=== PATIENT | female | born 1960 | race Caucasian/White ===

== ENCOUNTER → 2017-05-16 | Outpatient (CLI) | payer BC, OTHER ==
[~2017-05-16] MED LIST: DICL35CA PO; DOCU100T7 PO; ESTR0.62 PO; NF-ESOM40C PO; TELM40T PO; simply sleep PO
--- NOTE | 2017-05-19 10:48 | Diagnostic Imaging Report ---
INDICATION: Screening mammogram. COMPARISON: None. COMPARISON: 05/08/2015. TECHNIQUE: Digital screening mammography was obtained with CAD and 3-dimensional tomosynthesis. FINDINGS: Scattered fibroglandular densities are again seen. There has been no interval change since the prior examination. No suspicious calcifications or masses are seen. IMPRESSION: Stable screening mammogram. No malignancy. ACR BI-RADS Category 1: Negative. Result letter will be mailed to the patient. Note: At least 10% of breast cancer is not imaged by mammography. Dictated by: Dictated on workstation # [id number]
== END ==
LOC: RAD 06:56
PROVIDERS: ATTEND Family Medicine
DX: Z12.31 Encounter for screening mammogram for malignant neoplasm of breast (principal)
CPT/HCPCS: 77067

== ENCOUNTER → 2018-06-12 | Outpatient (CLI) | payer BC, OTHER ==
--- NOTE | 2018-06-15 10:28 | Diagnostic Imaging Report ---
Indication: Routine screening. Comparison is made with prior mammogram from 05/16/2017 and 05/08/2015. 2-D and 3-D bilateral screening mammography was performed with CAD. Both breasts are heterogeneously dense, limiting the sensitivity of mammography. The overall parenchymal pattern appears to be stable. Circumscribed density in the upper and slightly outer retroareolar left breast appears stable. No new mass or malignant-appearing microcalcifications are seen. The axillae are unremarkable. Impression: BI-RADS category 2 No mammographic features suspicious for malignancy are identified. ACR BI-RADS Category 2: Benign findings. Result letter will be mailed to the patient. Note: At least 10% of breast cancer is not imaged by mammography. Dictated by: Dictated on workstation # [id number]
== END ==
LOC: RAD 13:27
PROVIDERS: ATTEND Nurse Practitioner Family
DX: Z12.31 Encounter for screening mammogram for malignant neoplasm of breast (principal)
CPT/HCPCS: 77067

== ENCOUNTER → 2019-01-26 | Outpatient (CLI) | payer BC, OTHER ==
--- NOTE | 2019-01-26 12:52 | Diagnostic Imaging Report ---
PROCEDURE: US Gallbladder. TECHNIQUE: Multiple real-time grayscale images were obtained over the right upper quadrant in various projections. INDICATION: Right upper quadrant pain and diarrhea. FINDINGS: The liver is normal in size and is without focal lesions. There is no biliary duct dilatation. Common bile duct measures less than 5 mm. There is no cholelithiasis, gallbladder wall thickening or pericholecystic fluid. Pancreas is partially obscured by bowel gas. Right kidney is normal. There is no ascites. IMPRESSION: Unremarkable right upper quadrant ultrasound. Dictated by: Dictated on workstation # [id number]
== END ==
LOC: RAD 06:48
PROVIDERS: ATTEND Surgery
DX: R10.11 Right upper quadrant pain (principal); R19.7 Diarrhea, unspecified
CPT/HCPCS: 76705

== ENCOUNTER → 2019-01-28 | Outpatient (CLI) | payer BC, OTHER ==
[~2019-01-28] MED LIST changes: +CATHETER FLUSH 10 ML SYR IV PRN
--- NOTE | 2019-01-28 18:06 | Diagnostic Imaging Report ---
EXAMINATION: Nuclear medicine hepatobiliary scan. INDICATION: Right upper quadrant pain. FINDINGS: There are no prior nuclear medicine studies available for comparison. The gallbladder ultrasound exam performed on 01/26/2009 failed to show any sign of cholelithiasis or acute cholecystitis. For this exam, 5.48 mCi of Choletec was injected. An 8-ounce can of Ensure was also administered one hour into the exam. Normally, there is uptake of the radiotracer by the gallbladder before 30 minutes. However on this exam, there was no clear evidence for uptake of the radiotracer by the gallbladder until 55 minutes. The delayed uptake of the gallbladder does suggest that there is an element of chronic cholecystitis present. There is extension of the radiotracer into the small bowel indicating that the common bile duct is not obstructed. The ejection fraction is only 13.4% (normal greater than 35%). The reason for the diminished ejection fraction is not certain. IMPRESSION: 1. There is no evidence for acute cholecystitis but the delayed uptake of the radiotracer by the gallbladder does suggest that there is an element of chronic cholecystitis present. The ejection fraction is also well below normal limits. 2. There is no evidence for obstruction of the common bile duct. Dictated by: Dictated on workstation # [id number]
== END ==
LOC: RAD 11:13
PROVIDERS: ATTEND Surgery
DX: K81.1 Chronic cholecystitis (principal)
CPT/HCPCS: 78227

== ENCOUNTER 2019-02-01 12:04 | Outpatient (CLI) | payer BC, OTHER ==
[~2019-02-01] VITALS: Ht 172.7 cm; Wt 79.4 kg
[~2019-02-01 12:04] MED LIST changes: -CATHETER FLUSH 10 ML SYR IV PRN
[2019-02-01] MEDS ORDERED: TOLTA4 PO (13:29)
[2019-02-01] MEDS ORDERED: LOSA50TA63 PO (13:29)
[2019-02-01] MEDS ORDERED: ESTR0.3T PO (13:29)
[2019-02-01] MEDS ORDERED: DEXL60CA PO (13:29)
[2019-02-02] MEDS ORDERED: omeprazole PO (09:40)
[2019-02-02] MEDS ORDERED: HYDR-3816 PO (11:28)
== END 2019-02-01 13:30 | disposition home or self-care (01) ==
LOC: PREOP 12:04
PROVIDERS: ATTEND Surgery
DX: Z01.818 Encounter for other preprocedural examination (principal)

== ENCOUNTER 2019-02-02 08:30 | Day surgery (SDC) | payer BC, OTHER ==
[2019-02-02] VITALS (10 sets, daily range): BP systolic 123–146; BP diastolic 62–86
[~2019-02-02] VITALS: Ht 172.7 cm; Wt 74.4 kg
[~2019-02-02 08:30] MED LIST changes: +DEXL60CA PO; +ESTR0.3T PO; +LOSA50TA63 PO; +TOLTA4 PO
[2019-02-02] MEDS ORDERED: ceFAZolin 2 GM/50 ML NS 50 ML IV ONE (09:00)
[2019-02-02] MEDS: LACTATED RINGERS 1,000 ML IV PRN ×2 (09:20→12:35)
[2019-02-02 09:31] LABS: BASOPHILS % (AUTO) 0 % (0-10); EOSINOPHILS % (AUTO) 0 % (0-10); HEMATOCRIT 42 % (35-52); HEMOGLOBIN 14.8 G/DL (11.5-16.0); LYMPHOCYTES # (AUTO) 1.5 X 10^3 (1.0-4.0); LYMPHOCYTES % (AUTO) 22 % (12-44); MEAN CORPUSCULAR HEMOGLOBIN 32 PG (25-34); MEAN CORPUSCULAR HGB CONC 35 G/DL (32-36); MEAN CORPUSCULAR VOLUME 92 FL (80-99); MONOCYTES # (AUTO) 0.4 X 10^3 (0.0-1.0); MONOCYTES % (AUTO) 6 % (0-12); NEUTROPHILS % (AUTO) 71 % (42-75); PLATELET COUNT 206 10^3/uL (130-400); RED CELL DISTRIBUTION WIDTH 12.2 % (10.0-14.5)
[2019-02-02] MEDS ORDERED: omeprazole PO (09:40)
[2019-02-02] MEDS ORDERED: proPOfol 200 MG/20 ML (DIPRIVAN) VIAL IV ONE (09:42)
[2019-02-02] MEDS ORDERED: SEVOFLURANE (ULTANE) 15 ML INHAL SOLN ONE ×4 (09:42→12:38)
[2019-02-02] MEDS ORDERED: LIDOCAINE PF 2% 5 ML (XYLOCAINE) VIAL ONE (09:42)
[2019-02-02] MEDS ORDERED: fentaNYL INJECTION 100 MCG/2 ML AMP ONE ×2 (09:43→12:24)
[2019-02-02] MEDS ORDERED: MIDAZOLAM 2 MG/2 ML (VERSED) VIAL ONE (09:43)
[2019-02-02] MEDS ORDERED: CATHETER FLUSH 10 ML SYR IV PRN (09:45)
[2019-02-02] MEDS ORDERED: NEOSTIGMINE 1 MG/ML 5 ML SYRINGE ONE (09:47)
[2019-02-02] MEDS ORDERED: GENTAMICIN 40 MG/ML 2 ML INJ SDV ONE (09:47)
[2019-02-02] MEDS ORDERED: DEXAMETHASONE 10 MG/ML (DECADRON) 1 ML VIAL ONE (09:47)
[2019-02-02] MEDS ORDERED: ROCURONIUM 10 MG/ML 5 ML SYRINGE IV ONE (09:47)
[2019-02-02] MEDS ORDERED: ONDANSETRON 4 MG/2 ML (SDV) Z0FRAN ONE (09:47)
[2019-02-02] MEDS ORDERED: BUP/EPI 0.5% 1:200,000 (SENSORCAINE) 30 ML VIAL ONE (10:17)
--- NOTE | 2019-02-02 11:26 | Progress Note-Pre Operative ---
Pre-Operative Progress Note H&P Reviewed The H&P was reviewed, patient examined and no changes noted. Date Seen by Provider: February 02, 2019 Time Seen by Provider: 11:25 Date H&P Reviewed: February 02, 2019 Time H&P Reviewed: 11:20 Pre-Operative Diagnosis: Symptomatic Biliary Dyskinesia JOSE EDUARDO NATARAJAN APRN February 02, 2019 11:25
[2019-02-02] MEDS ORDERED: HYDR-3816 PO (11:28)
--- NOTE | 2019-02-02 11:29 | Discharge Inst-Surgical ---
D/C Lap Instructions-KIDO New, Converted, or Re-Newed RX: RX on Chart Follow Up Appt in 2 weeks Activity as tolerated No driving for 24 hours No [address] while on pain medications Incentive Spirometry use every 2 hours while awake Regular Diet Symptoms to Report: Fever over 101 degree F, Nausea/Vomiting Infection Signs and Symptoms to report: Increased redness, Foul odor of wound, Increased drainage Bathing instructions: May shower Operative Area Clean/Dry; Keep incision clean/dry If any problems/questions: Contact your physician or go to Emergency Room JOSE EDUARDO NATARAJAN APRN February 02, 2019 11:28
[2019-02-02] MEDS ORDERED: HYDROcodone/APAP 5 MG/325 MG (LORTAB) TAB PO ONE (11:30)
[2019-02-02] MEDS ORDERED: ONDANSETRON 4 MG/2 ML (SDV) Z0FRAN IVP PRN ×2 (11:30→13:15)
[2019-02-02] MEDS ORDERED: morphine INJ 10 MG/ML 1ML (SYR OR VIAL) IVP PRN (11:30)
[2019-02-02] MEDS ORDERED: ACETAMINOPHEN 325 MG TABLET PO PRN (11:30)
[2019-02-02] MEDS ORDERED: ceFAZolin 2 GM/50 ML NS 50 ML ONE (11:35)
[2019-02-02] MEDS ORDERED: GLYCOPYRROLATE 0.2 MG/ML (ROBINUL) 2 ML VIAL ONE (12:30)
--- NOTE | 2019-02-02 12:50 | Progress Note-Post Operative ---
Post-Operative Progess Note Surgeon (s)/Travel Guide (s) Surgeon RHONDA ALMEIDA MD Travel Guide: jeane hidalgo RN CLINICAL DOCUMENTATION SPECIALIST Pre-Operative Diagnosis Symptomatic Biliary Dyskinesia Post-Operative Diagnosis chronic calculous cholecystitis. Procedure & Operative Findings Date of Procedure 02/02/19 Procedure Performed/Findings laparoscopic cholecystectomy Anesthesia Type GET Estimated Blood Loss Estimated blood loss (mL): minimal Specimens/Packing Specimens Removed gallbladder RHONDA ALMEIDA MD February 02, 2019 12:50
[2019-02-02] MEDS ORDERED: morphine INJ 10 MG/ML 1ML (SYR OR VIAL) IVP ONE (13:15)
--- NOTE | 2019-02-02 13:53 | Anesthesia-General Post-Op ---
General Patient Condition Mental Status/LOC: Same as Preop Cardiovascular: Satisfactory Nausea/Vomiting: Absent Respiratory: Satisfactory Pain: Controlled Complications: Absent Post Op Complications Complications None Follow Up Care/Instructions Patient Instructions None needed. Anesthesia/Patient Condition Patient Condition Patient is doing well, no complaints, stable vital signs, no apparent adverse anesthesia problems. No complications reported per nursing. SHAE MOLINA CRNA February 02, 2019 13:53
[2019-02-02] MEDS ORDERED: HYDROcodone/APAP 7.5 MG/325 MG (LORTAB, LORCET PLUS) TABLET PO ONE (14:24)
--- NOTE | 2019-02-02 20:18 | OPERATIVE REPORT ---
DATE OF SERVICE: 02/02/2019 ATTENDING PRIMARY CARE PHYSICIAN: Dr. Desir. PREOPERATIVE DIAGNOSIS: Chronic acalculous cholecystitis. POSTOPERATIVE DIAGNOSIS: Chronic calculous cholecystitis. PROCEDURE: Laparoscopic cholecystectomy. SURGEON: Rhonda Almeida MD SALES ASSISTANT ENTERTAINMENT AND MEDIA: Wesley Saucedo APRN. ANESTHESIA: General endotracheal. ESTIMATED BLOOD LOSS: Minimal. FINDINGS: Distended gallbladder with multiple small stones and sludge. DISPOSITION: The patient tolerated the procedure well. INDICATIONS: The patient is a 58-year-old female who we have seen before in the past. We had done a screening colonoscopy in 04/2016, which was normal. She also does have a history of gastroesophageal reflux disease and has been treated with Nexium. She reports different type of issue, which is more of an epigastric pain with associated nausea as well as vomiting. She reports that this pain is different and also persisted. She underwent an ultrasound, which did not show any gallstones; however, HIDA scan did show a very low ejection fraction as well as a severe reproduction of symptoms consistent with a chronic acalculous cholecystitis at that time. DESCRIPTION OF PROCEDURE: The patient was brought to the operating room, laid supine on the table. After adequate IV pain and sedating medications and general endotracheal intubation, the abdomen was prepped and draped in standard surgical fashion. A 0.5% Marcaine with epinephrine was then used to anesthetize the overlying skin in the left upper abdominal quadrant and a transverse skin incision made using 15 blade. An 0 silk suture was applied to the medial aspect of the incision for retraction and a Veress needle inserted with a low opening pressure of 0 mmHg and the abdomen was then insufflated to 15 mmHg pressure. Veress needle removed and a 5 mm Xcel trocar placed followed by a 5 mm 45-degree angle laparoscope visualizing the peritoneal cavity. Four quadrant abdominal x-ray was performed. There was a dilated gallbladder with chronic gallbladder inflammation. Remainder of the omentum, liver, stomach appeared normal. Under direct visualization, we then proceed to place a 10 mm supraumbilical port after the skin and peritoneal lining, were anesthetized using 0.5% Marcaine with epinephrine and a transverse skin incision was made using a 15 blade. In a similar manner, a right upper abdominal quadrant 5 mm port was placed. The patient was then placed in reverse Trendelenburg position as well as plane right side up, left side down. The fundus of the gallbladder was then retracted anteriorly and superiorly. The hepatoduodenal ligament was then opened using blunt dissection as well as cautery using the hook instrument. The entire critical view of safety was identified including the triangle of Calot as well as the cystic duct and artery as the only two structures going into the gallbladder as well as the cystic plate behind the proximal gallbladder. The gallbladder was then dissected off the liver bed using cautery on the hook instrument with visualization of good hemostasis as well as no leaking ducts of Luschka. The gallbladder was removed through the 10 mm port site using an EndoCatch bag. The 10 mm port site fascia and peritoneum were then closed under direct visualization using a Derek-Farhan device and 0 Vicryl suture. The abdomen was desufflated. The remaining ports removed. All skin incisions were closed using 4-0 Monocryl running subcuticular sutures. Wounds were then cleaned and covered with Dermabond. The patient tolerated the procedure well. We will start her on IV normal pain medications as well as a clear liquid diet. Once she is tolerating clears, has good pain control with oral pain medications and is ambulating well, we will discharge her home. Job ID: [id number] DocumentID: [id number] Dictated Date: 02/02/2019 12:48:46 Stick Inserter Date: 02/02/2019 20:17:54 Dictated By: RHONDA ALMEIDA MD
== END 2019-02-02 15:10 | disposition home or self-care (01) ==
LOC: SDC 08:30
PROVIDERS: ATTEND Surgery
DX: K81.1 Chronic cholecystitis (principal); I10 Essential (primary) hypertension; K21.9 Gastro-esophageal reflux disease without esophagitis; Z79.899 Other long term (current) drug therapy
CPT/HCPCS: 36415; 85025; 87081; 94664

== ENCOUNTER → 2019-06-25 | Outpatient (CLI) | payer BC, OTHER ==
[~2019-06-25] MED LIST changes: +HYDR-3816 PO; +omeprazole PO
--- NOTE | 2019-06-25 18:33 | Diagnostic Imaging Report ---
INDICATION: Routine screening. COMPARISON: Prior mammogram from 06/12/2018 and 05/16/2017. EXAMINATION: 2D and 3D bilateral screening mammography was performed with CAD. 3D tomographic images were obtained and reviewed. The current study was also evaluated with a Computer Aided Detection (CAD) system. FINDINGS: Both breasts remain heterogeneously dense, limiting the sensitivity of mammography. Circumscribed mass in the retroareolar upper-outer left breast is stable. No spiculated mass or malignant appearing microcalcifications are seen. The axillae are unremarkable. IMPRESSION: No mammographic features suspicious for malignancy are identified. ACR BI-RADS Category 2: Benign findings. Result letter will be mailed to the patient. Note: At least 10% of breast cancer is not imaged by mammography. Dictated on workstation # [id number]
== END ==
LOC: RAD 14:29
PROVIDERS: ATTEND Family Medicine
DX: Z12.31 Encounter for screening mammogram for malignant neoplasm of breast (principal)
CPT/HCPCS: 77067

== ENCOUNTER → 2020-06-26 | Outpatient (CLI) | payer BC, OTHER ==
[~2020-06-26] MED LIST changes: +HYDR-34 PO; -HYDR-3816 PO
--- NOTE | 2020-06-26 20:37 | Diagnostic Imaging Report ---
EXAM: Digital mammogram, bilateral screening. COMPARISONS: 06/25/2019, 06/12/2018 and 05/16/2017. There are no current complaints. History: Routine screening Technique: Bilateral 3d digital tomographic views were obtained with [employer] and reviewed on a [employer] workstation. In addition, CAD - computer aided detection was utilized. Findings: Breast Tissue Density B : The breast tissue is composed of mixed fatty and fibroglandular tissue. There are no suspicious masses, microcalcifications or areas of architectural distortion. Impression: No suspicious findings. BI-RADS Category 1: Negative. ACR BI-RADS Category 1: Negative. Result letter will be mailed to the patient. Note: At least 10% of breast cancer is not imaged by mammography. Normal interval followup. The patient will receive a letter with the results in the mail. A mammogram does not have 100% sensitivity and therefore a negative imaging study should not delay further work up of a suspicious abnormality. Patient information is entered into the [facility] reminder system using [employer] with a target due date for the next screening mammogram. The patient will receive a reminder. "Our facility is accredited by the [employer] Mammography Program." Dictated on workstation # [id number]
== END ==
LOC: RAD 15:45
PROVIDERS: ATTEND Nurse Practitioner Family
DX: Z12.31 Encounter for screening mammogram for malignant neoplasm of breast (principal)
CPT/HCPCS: 77063; 77067

== ENCOUNTER → 2021-06-29 | Outpatient (CLI) | payer BC, OTHER ==
--- NOTE | 2021-06-29 09:11 | Diagnostic Imaging Report ---
INDICATION: Routine screening. Comparison is made with prior mammograms from 06/26/2020 and 06/25/2019. 2-D and 3-D bilateral screening mammography was performed with CAD. Both breasts are heterogeneously dense, limiting the sensitivity of mammography. Circumscribed mass in the upper and slightly outer retroareolar left breast is stable. No new mass or malignant-appearing microcalcifications are seen. Axillae are unremarkable. IMPRESSION: BI-RADS Category 2 No mammographic features suspicious for malignancy are identified. ACR BI-RADS Category 2: Benign findings. Result letter will be mailed to the patient. Note: At least 10% of breast cancer is not imaged by mammography. Dictated by: Dictated on workstation # [id number]
== END ==
LOC: RAD 07:30
PROVIDERS: ATTEND Nurse Practitioner Family
DX: Z12.31 Encounter for screening mammogram for malignant neoplasm of breast (principal)
CPT/HCPCS: 77063; 77067

== ENCOUNTER → 2022-07-31 | Outpatient (CLI) | payer BC, OTHER ==
--- NOTE | 2022-07-31 10:11 | Diagnostic Imaging Report ---
INDICATION: Routine screening. COMPARISON: 06/29/2021 and 06/26/2020. TECHNIQUE: 2D and 3D bilateral screening mammography was performed with CAD. FINDINGS: Both breasts are heterogeneously dense, limiting the sensitivity of mammography. The circumscribed mass in the retroareolar left breast appears stable. No new mass is identified. No malignant-appearing microcalcifications are seen. The axillae are unremarkable. IMPRESSION: No mammographic features suspicious for malignancy are identified. ACR BI-RADS Category 2: Benign findings. Result letter will be mailed to the patient. Note: At least 10% of breast cancer is not imaged by mammography. Dictated by: Dictated on workstation # [id number]
== END ==
LOC: RAD 07:30
PROVIDERS: ATTEND Nurse Practitioner Family
DX: Z12.31 Encounter for screening mammogram for malignant neoplasm of breast (principal)
CPT/HCPCS: 77063; 77067